=== PATIENT | male | born 1980 | race Caucasian/White ===

== ENCOUNTER 2024-10-25 12:41 | Emergency (ER) | payer OTHER, SELFPAY ==
[2024-10-25 12:46] VITALS: BP 156/88; PULSE 78; TEMP 36.8; O2SAT 98; BMI 29.2
--- NOTE | 2024-10-25 13:05 | PC.NURSE ---
Patient reports sliding on ice causing twisting of trunk causing pain to low back.
--- NOTE | 2024-10-25 13:07 | ED_ITS ---
HPI HPI - Back Pain/Injury General Chief Complaint: Back Pain/Injury Stated Complaint: BACK PAIN Time Seen by Provider: 10/25/24 13:02 Mode of arrival: walk-in History of Present Illness HPI Narrative: 44 year old male presents to the ED for left lower back pain. Onset was this morning. Reports slipping on ice at work around 0515. Denies falling to the ground. He took Aleve at 0700 this morning. States he sat in his massage chair at home for 1 hour. He had difficulty getting out of the chair. Denies weakness, N/T to his extremities. Denies saddle anesthesia. Denies change in bowel and/or bladder control. The pain is worse with small movements. Related Data Previous Rx's ?Medication ?Instructions ?Recorded hydrocodone 5 mg-acetaminophen 325 1 tab PO Q8H PRN pain 4 days #12 10/25/24 mg tablet tabs prednisone 20 mg tablet 40 mg (2 x 20 mg) PO DAILY 5 days 10/25/24 #10 tabs tizanidine 4 mg capsule (Zanaflex) 4 mg PO Q8H PRN muscle spasticity 10/25/24 #15 caps Allergies Allergy/AdvReac Type Severity Reaction Status Date / Time No Known Drug Allergies Allergy Verified 10/25/24 12:46 Opioid HPI Opioid Management Most Recent Opioid Data: No Data to Display Review of Systems ROS Constitutional Denies: fever or chills Ears, nose, mouth, and throat Denies: throat pain or neck pain Cardiovascular Denies: chest pain Respiratory Denies: shortness of breath Gastrointestinal Denies: abdominal pain, nausea or vomiting Genitourinary Denies: painful urination, urinary frequency, decreased urine ouput or urinary hesitancy Musculoskeletal Reports: back pain; Denies: neck pain, extremity pain or extremity swelling Neurological Denies: numbness in extremities, weakness in extremities or lack of coordination PFSH PFSH Social History Little interest or pleasure in doing things: not at all Feeling down, depressed, or hopeless: not at all Exam Constitutional Vital Signs, click to edit/add: Last Vital Signs Temp 98.2 F 10/25/24 12:46 Pulse 78 10/25/24 12:46 Resp 18 10/25/24 12:46 BP 156/88 H 10/25/24 12:46 Pulse Ox 98 10/25/24 12:46 O2 Del Method Room Air 10/25/24 12:46 Common normals: no apparent distress and oriented x3 General appearance: cooperative HENMT Mouth: oral and palatal mucosa normal and lip normal Eye Common normals: conjunctivae normal and no scleral icterus Neck & C-Spine Common normals: supple Chest Chest: symmetrical chest wall rise Respiratory Common normals: normal respiratory effort Effort & inspection: able to speak in complete sentences and symmetric chest mov ement Cardio Common normals: regular rate Peripheral pulses: posterior tibial pulses present and dorsalis pedis pulses present Back & Pelvis Thoracic spine/upper back: normal to inspection; no thoracic spinal tenderness and no paraspinal muscle tenderness Lumbar spine/lower back: normal to inspection, paraspinal muscle tenderness, paraspinal muscle spasm and straight leg raise negative bilaterally; no lumbar spinal tenderness Neuro Common normals: oriented x3 and moves all extremities Sensorium/orientation: awake and alert Speech: speech normal Course Vital Signs Vital signs: Vital Signs Temperature 98.2 F 10/25/24 12:46 Pulse Rate 78 10/25/24 12:46 Respiratory Rate 18 10/25/24 12:46 Blood Pressure 156/88 H 10/25/24 12:46 Pulse Oximetry 98 10/25/24 12:46 Oxygen Delivery Method Room Air 10/25/24 12:46 Temperature 98.2 F 10/25/24 12:46 Pulse Rate 78 10/25/24 12:46 Respiratory Rate 18 10/25/24 12:46 Blood Pressure 156/88 H 10/25/24 12:46 Pulse Oximetry 98 10/25/24 12:46 Oxygen Delivery Method Room Air 10/25/24 12:46 MDM - Back Pain/Injury MDM Narrative Medical decision making narrative: X-ray of the lumbar spine showed mild degenerative change. Findings were discussed. He was given medication for his discomfort here; he was driving home. OARRS was reviewed. Prescriptions were provided for prednisone, Zanaflex, and [place]. Follow up with occupational health for a recheck, further evaluation and treatment. Medical Records Attestation: I reviewed the patient's medical records. Imaging Data XR: Attestation: I have reviewed the pertinent imaging results. Radiologist's impression: ITS Impressions Lumbar Spine X-Ray 10/25/24 13:16 IMPRESSION: Mild degenerative change Electronically authenticated by: YOLIS NI Date: 10/25/2024 14:14 Discharge Plan Discharge Chief Complaint: Back Pain/Injury Clinical Impression: Strain of lumbar region Patient Disposition: Home, Self-Care Time of Disposition Decision: 14:26 Condition: Good Mode of Transportation: Private Vehicle Prescriptions / Home Meds: New hydrocodone-acetaminophen 5-325 mg tablet 1 tab PO Q8H PRN (Reason: pain) 4 Days Qty: 12 0RF tizanidine [Zanaflex] 4 mg capsule 4 mg PO Q8H PRN (Reason: muscle spasticity) Qty: 15 0RF prednisone 20 mg tablet 40 mg PO DAILY 5 Days Qty: 10 0RF Print Language: Serbian Instructions: Low Back Strain (ED), Back Pain (ED) Additional Instructions: Follow up with occupational health for a recheck, further evaluation and treatment. Return to the ER for worsening symptoms. Referrals: YOLIS PORTER [Primary Care Provider] - 1 week Discharge Date/Time: 10/25/24 14:51
--- NOTE | 2024-10-25 13:16 | XR_ITS ---
[facility] [place] [id number] Patient Name: REGINA MICHAEL MRN: [facility]:[id number] date: 1980 Sex: M Assigned Patient Location: ER Current Patient Location: ER Accession/Order Number: [id number] Exam Date: 10/25/2024 13:08 Report Date: 10/25/2024 14:14 At the request of: JAGRUTI LAZO Procedure: XR lumbar spine 2-3V EXAMINATION: XR lumbar spine 2-3V HISTORY: pain, injury COMPARISON: No relevant comparison available. FINDINGS: BONES: Mild widespread spondylosis and facet osteoarthritis. No visible acute bony abnormality. DISC SPACES: Normal. No significant disc height narrowing, subluxation, or endplate abnormality. PARASPINOUS: Negative. No paraspinous abnormality is seen. OTHER: Negative. XR/XR lumbar spine 2-3V IMPRESSION: Mild degenerative change Electronically authenticated by: YOLIS NI Date: 10/25/2024 14:14
[2024-10-25] MEDS: KETOROLAC TROMETHAMINE 30 MG/ML VIAL 15 MG IM (13:23)
[2024-10-25] MEDS: DEXAMETHASONE SOD PHOS 10 MG/ML VIAL IM (13:24)
== END 2024-10-25 14:51 | disposition home or self-care (01) ==
PROVIDERS: Emergency Provider Emergency Medicine; Family Provider Family Medicine; PCP Family Medicine
DX: S39.012A Strain of muscle, fascia and tendon of lower back, initial encounter (principal); W18.40XA Slipping, tripping and stumbling without falling, unspecified, initial encounter
CPT/HCPCS: 72100; 96372; 99284; J1100; J1885